=== PATIENT | female | born 1975 | race Two or more races ===

== ENCOUNTER → 2016-09-04 | Outpatient (CLI) | payer OTHER ==
[2016-09-04 10:19] LABS: Urine RBC None Seen /hpf (0 - 4)
[2016-09-04 10:24] LABS: Basophils # (auto) 0 uL; Basophils % (auto) 0.7 % (0.0-2.0); DEFINITIVE VIEW TRANSMISSION; Eosinophils # (auto) 0 uL; Eosinophils % (auto) 0.9 % (0.0-7.0); Hematocrit 30.4 % (36.0-46.0); Hemoglobin 9.3 g/dL (12.2-16.2); Lymphocytes # (auto) 1.9 uL; Lymphocytes % (auto) 33.7 % (10.0-50.0); Mean Corpuscular Hemoglobin 21.1 pg (28.0-32.0); Mean Corpuscular Hgb Conc. 30.7 g/dL (32.0-36.0); Mean Corpuscular Volume 68.6 fL (80.0-100.0); Mean Platelet Volume 8.4 fL (7.4-10.4); Monocytes # (auto) 0.4 uL; Monocytes % (auto) 6.3 % (0.0-12.0); Neutrophils # (auto) 3.3 uL; Neutrophils % (auto) 58.4 % (37.0-80.0); Platelet Count (auto) 432 10^3/uL (140-450); Red Cell Distribution Width 17.7 % (11.6-16.0); White Blood Cell 5.7 10^3/uL (4.4-10.8)
[2016-09-04 10:57] LABS: Albumin 3.9 g/dL (3.4-5.0); BUN/Creatinine Ratio 18.3; Bilirubin, Total 0.7 mg/dL (0.2-1.0); Calcium 8.7 mg/dL (8.5-10.1); Total Protein 7.8 g/dL (6.4-8.2)
[2016-09-04 10:59] LABS: Urine Bilirubin Negative (Negative); Urine Blood Negative /uL (Negative); Urine Color Yellow (Yellow); Urine Glucose Normal (Normal); Urine Ketone Negative (Negative); Urine Nitrite Negative (Negative); Urine Squamous Epithelial Cell FEW /hpf (<5); Urine Urobilinogen Normal (Negative); Urine pH 6.5 (5.0-8.0)
[2016-09-04 11:01] LABS: Vitamin B12 381 pg/mL (211-911)
== END | disposition home or self-care (01) ==
LOC: LAB 09:51
DX: R87.610 Atypical squamous cells of undetermined significance on cytologic smear of cervix (ASC-US) (principal); D64.9 Anemia, unspecified
CPT/HCPCS: 36415; 80053; 80061; 81001; 82607; 82746; 83540; 83550; 84443; 85025

== ENCOUNTER 2017-05-18 19:36 | Emergency (ER) | payer OTHER ==
[~2017-05-18] VITALS: Ht 165.1 cm; Wt 77.1 kg
[2017-05-18 19:44] VITALS: BP 134/50
== END 2017-05-18 22:57 | disposition home or self-care (01) ==
LOC: ER 19:42
DX: R51 Headache (principal); H93.12 Tinnitus, left ear; E78.5 Hyperlipidemia, unspecified
CPT/HCPCS: 70450; 81025

== ENCOUNTER → 2017-10-07 | Outpatient (CLI) | payer OTHER ==
[2017-10-07 08:41] LABS: Basophils # (auto) 0 uL; Basophils % (auto) 0.5 % (0.0-2.0); Eosinophils # (auto) 0.1 uL; Hematocrit 33.1 % (36.0-46.0); Hemoglobin 10.1 g/dL (12.2-16.2); Lymphocytes % (auto) 29.4 % (10.0-50.0); Mean Corpuscular Hemoglobin 21.7 pg (28.0-32.0); Mean Corpuscular Hgb Conc. 30.6 g/dL (32.0-36.0); Mean Corpuscular Volume 70.8 fL (80.0-100.0); Monocytes # (auto) 0.5 uL; Monocytes % (auto) 6.7 % (0.0-12.0); Neutrophils # (auto) 4.2 uL; Neutrophils % (auto) 62.4 % (37.0-80.0); Platelet Count (auto) 386 10^3/uL (140-450); Red Blood Cells 4.68 10^6/uL (4.0-5.20); Red Cell Distribution Width 18.4 % (11.8-14.3); White Blood Cell 6.8 10^3/uL (4.4-10.8)
[2017-10-07 09:43] LABS: Albumin 3.9 g/dL (3.4-5.0); BUN/Creatinine Ratio 14.9; Bilirubin, Total 0.7 mg/dL (0.2-1.0); Calcium 9.3 mg/dL (8.5-10.1); Potassium 4.1 mmol/L (3.5-5.1); Total Protein 8.3 g/dL (6.4-8.2)
[2017-10-08 08:12] LABS: Urine Bacteria FEW /hpf (None Seen); Urine Blood TRACE /uL (Negative); Urine Mucus FEW (None Seen); Urine Specific Gravity 1.026 (1.001-1.035); Urine WBC 5 /hpf (0 - 5)
== END | disposition home or self-care (01) ==
LOC: LAB 08:00
DX: Z12.11 Encounter for screening for malignant neoplasm of colon (principal); Z13.220 Encounter for screening for lipoid disorders; D50.9 Iron deficiency anemia, unspecified; N92.0 Excessive and frequent menstruation with regular cycle
CPT/HCPCS: 36415; 80053; 80061; 81001; 82270; 82728; 83036; 83540; 84443; 85025

== ENCOUNTER 2020-10-18 19:12 | Emergency (ER) | payer OTHER ==
[~2020-10-18] VITALS: Ht 175.3 cm; Wt 77.1 kg
[2020-10-18 21:47] VITALS: BP 133/73
== END 2020-10-18 23:05 | disposition home or self-care (01) ==
LOC: ER 19:12
DX: G54.0 Brachial plexus disorders (principal); R91.1 Solitary pulmonary nodule; E78.5 Hyperlipidemia, unspecified; M54.2 Cervicalgia
CPT/HCPCS: 71046; 72125; 73030; 93005

== ENCOUNTER 2023-02-27 06:12 | Emergency (ER) | payer OTHER ==
[~2023-02-27] VITALS: Ht 165.1 cm; Wt 79.2 kg
[2023-02-27 07:18] VITALS: BP 146/86
[2023-02-27] MEDS ORDERED: SUMAtriptan SUCCINATE 6 MG/0.5 ML VL SC ONE (07:30)
[2023-02-27] MEDS ORDERED: ONDANSETRON ODT 4 MG TAB PO ONE (07:30)
[2023-02-27] MEDS ORDERED: ZOFR4T PO (08:38)
[2023-02-27] MEDS ORDERED: SUMA50TA2 PO (08:38)
== END 2023-02-27 08:46 | disposition home or self-care (01) ==
LOC: ER 06:12
DX: G43.909 Migraine, unspecified, not intractable, without status migrainosus (principal); E78.5 Hyperlipidemia, unspecified
CPT/HCPCS: 70450; 96372; 99285; J3030; Q0162